=== PATIENT | male | born 1965 ===

== ENCOUNTER → 2019-11-19 15:57 | Outpatient (REF) | payer SELFPAY ==
[2019-11-19 16:10] LABS: Hematocrit 37.1 % (40-54); Hemoglobin 12.4 g/dL (13.0-16.5); Mean Corp Hgb Conc 33.4 g/dL (32-36); Mean Corpuscular Hgb 29.7 pg (27.0-32.0); Mean Platelet Vol. 9.9 fl (6.2-12.0); Platelet Count 376 K/mm3 (150-450); RBC Distribution Width CV 13.2 % (11.6-14.6); RBC Distribution Width SD 43.1 fl (35.1-43.9); Red Blood Count 4.17 M/mm3 (4.6-6.2); White Blood Count 15.7 K/mm3 (4.4-11.0)
== END ==
LOC: OLS.AHA 15:57
DX: R41.82 Altered mental status, unspecified (principal)
CPT/HCPCS: 85027